=== PATIENT | male | born 2000 | race African-American/Black ===

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

== ENCOUNTER 2019-02-02 17:23 | Emergency (ER) | payer OTHER ==
[~2019-02-02] VITALS: Ht 175.3 cm; Wt 77.3 kg
[2019-02-02 17:23] VITALS: BP 138/83
== END 2019-02-02 20:45 | disposition left against medical advice (07) ==
LOC: M ED 17:23
DX: Z53.29 Procedure and treatment not carried out because of patient's decision for other reasons (principal)